=== PATIENT | female | born 1940 | race Caucasian/White ===

== ENCOUNTER 2016-07-01 10:50 | Inpatient (IN) ==
--- NOTE | 2016-07-01 11:29 | Emergency Department Note ---
Disposition Clinical Impression: Anemia Qualifiers: Anemia type: unspecified type Qualified Code(s): D64.9 - Anemia, unspecified Disposition: Admitted As Inpatient Condition: Good Referrals: NO,PCP [Non-Partnered Physician] - Forms: ED Satisfaction Letter General Adult HPI - General Chief complaint: ED Recheck/Abnormal Lab/Rx Stated complaint: Abnormal Lab result Time Seen by Provider: 07/01/16 11:12 Source: patient, EMS Limitations: no limitations Nursing Notes Reviewed: Yes Vital Signs Reviewed: Yes - History of Present Illness HPI Narrative: The patient Is a 76-year-old female with routine blood work yesterday which showed abnormal hemoglobin sent here by her primary care physician for admission. Patient denies any symptoms related to anemia she states she is in her baseline state of health she does not notice any blood or black stools per rectum. Onset (ago): day(s) (1) Improves with: nothing Worsens with: nothing Associated symptoms: Reports: denies other symptoms - Related Data Allergies Allergy/AdvReac Type Severity Reaction Status Date / Time Cefaclor [From Ceclor] AdvReac See Verified 10/07/15 12:51 Comments All systems ED: reviewed and negative except as stated. Constitutional: Denies: fever Cardiovascular: Denies: chest pain, palpitations Respiratory: Denies: dyspnea Past Medical History - Past Medical History Source: patient, old records reviewed, obtained from family, nursing notes reviewed Medical history: Reports: arthritis, diabetes Psychiatric history: Reports: no psych history - Social History Smoking Status: Never smoker Smokeless Tobacco Status: No Alcohol use: Reports: none Drug use: Reports: none Physical Exam - General Limitations: no limitations General appearance: alert, in no apparent distress - Head Head exam: atraumatic, normocephalic, normal inspection - Eye Eye exam: Present: normal appearance, PERRL, EOMI - ENT ENT exam: normal exam, normal oropharynx, mucous membranes moist - Neck Neck exam: Present: normal inspection, full ROM, trachea midline - Respiratory Respiratory exam: Present: normal lung sounds bilaterally - Cardiovascular Cardiovascular exam: Present: regular rate, normal rhythm, normal heart sounds - Abdominal Exam Abdominal exam: Present: soft, Non-Tender. Absent: tenderness, distention, guarding, rebound, rigidity - Rectal Exam Rectal exam: Present: normal inspection, normal rectal tone, heme (-) stool - Expanded Upper Extremity Exam Hand exam: Present: other (marked joint deformity bilat hands) - Back Exam Back exam: Present: normal inspection, full ROM. Absent: tenderness - Neurological Exam Neurological exam: Present: alert, oriented X3 - Psychiatric Psychiatric exam: Present: normal affect, normal mood - Skin Skin exam: Present: warm, dry, intact, normal color Course Vital Signs Temperature 98 F 07/01/16 10:53 Pulse Rate 84 07/01/16 10:53 Respiratory Rate 16 07/01/16 10:53 Blood Pressure 142/74 07/01/16 10:53 O2 Sat by Pulse Oximetry 100 07/01/16 10:53 Temperature 98 F 07/01/16 10:53 Pulse Rate 87 07/01/16 14:00 Respiratory Rate 16 07/01/16 14:00 Blood Pressure 162/74 07/01/16 14:00 O2 Sat by Pulse Oximetry 100 07/01/16 14:00 Oxygen Delivery Oxygen Delivery Room Air Medical Decision Making - MDM Narrative Medical decision making narrative: Hospitalist service and also Dr. Galindo that this could be done as an outpatient but Dr. Howard states that she wants this patient admitted she does not want her sent home and she will write in her medical notes that it is against her medical opinion and we should not send this patient home under no circumstances. The hospitalist agrees to accept and dr. galindo agrees to consult per dr. howard's request. - Medical Records Medical records reviewed: Yes I reviewed the patient's medical records. - Lab Data Lab results reviewed: Yes I reviewed the patient's lab results. Result diagrams: 07/01/16 11:55 07/01/16 11:55 Lab Results 07/01/16 07/01/16 07/01/16 Range/Units 11:55 11:55 11:55 WBC 4.2 L (4.3-11.1) K/mcL RBC 2.68 L (3.82-4.97) M/mcL Hgb 7.6 L (11.5-15.4) g/dL Hct 23.6 L (35.3-44.9) % MCV 88.1 (83.0-100.0) fL MCH 28.4 (28.0-33.3) pg MCHC 32.2 (31.6-35.5) g/dL RDW 15.1 H (11.5-14.5) % Plt Count 940 H (140-400) K/mcL MPV 8.4 L (9.4-12.4) fL Immature Gran % 4.1 H (0-4) % Seg Neutrophils % 23.3 % Lymphocytes % 42.7 % Monocytes % 26.3 % Eosinophils % 2.9 % Basophils % 0.7 % Neutrophils # 1.0 L (1.6-8.9) K/mcL Lymphocytes # 1.8 (0.6-4.6) K/mcL Monocytes # 1.1 (0.0-1.3) K/mcL Eosinophils # 0.1 (0.0-0.6) K/mcL Basophils # 0.0 (0.0-0.2) K/mcL Platelet Estimate Marked Increase H (Normal) PT 13.8 H (9.4-12.1) Seconds INR 1.3 APTT 31.4 (26.0-36.0) Seconds Sodium 134 L (136-145) mEq/L Potassium 4.5 (3.5-4.5) mEq/L Chloride 105 (98-109) mEq/L Carbon Dioxide 21 (19-29) mEq/L BUN 28 H (7-20) mg/dL Creatinine 1.85 H (0.57-1.11) mg/dL Est GFR ( Amer) 32 L (> 60) Est GFR (Non-Af Amer) 27 L (> 60) BUN/Creatinine Ratio 15 (6-26) Glucose 120 H (70-99) mg/dL Calculated Osmolality 285 (280-300) Calcium 9.3 (8.6-10.8) mg/dL Stool Occult Blood (Negative) Blood Type Antibody Screen 07/01/16 07/01/16 Range/Units 11:55 12:26 WBC (4.3-11.1) K/mcL RBC (3.82-4.97) M/mcL Hgb (11.5-15.4) g/dL Hct (35.3-44.9) % MCV (83.0-100.0) fL MCH (28.0-33.3) pg MCHC (31.6-35.5) g/dL RDW (11.5-14.5) % Plt Count (140-400) K/mcL MPV (9.4-12.4) fL Immature Gran % (0-4) % Seg Neutrophils % % Lymphocytes % % Monocytes % % Eosinophils % % Basophils % % Neutrophils # (1.6-8.9) K/mcL Lymphocytes # (0.6-4.6) K/mcL Monocytes # (0.0-1.3) K/mcL Eosinophils # (0.0-0.6) K/mcL Basophils # (0.0-0.2) K/mcL Platelet Estimate (Normal) PT (9.4-12.1) Seconds INR APTT (26.0-36.0) Seconds Sodium (136-145) mEq/L Potassium (3.5-4.5) mEq/L Chloride (98-109) mEq/L Carbon Dioxide (19-29) mEq/L BUN (7-20) mg/dL Creatinine (0.57-1.11) mg/dL Est GFR ( Amer) (> 60) Est GFR (Non-Af Amer) (> 60) BUN/Creatinine Ratio (6-26) Glucose (70-99) mg/dL Calculated Osmolality (280-300) Calcium (8.6-10.8) mg/dL Stool Occult Blood Negative (Negative) Blood Type O POSITIVE Antibody Screen POSITIVE
[2016-07-01 12:04] LABS: Basophils % 0.7 %; Eosinophils # 0.1 K/mcL (0.0-0.6); Eosinophils % 2.9 %; Hematocrit 23.6 % (35.3-44.9); Hemoglobin 7.6 g/dL (11.5-15.4); Immature Granulocytes % 4.1 % (0-4); Lymphocytes # 1.8 K/mcL (0.6-4.6); Lymphocytes % 42.7 %; Mean Corpuscular HGB Conc 32.2 g/dL (31.6-35.5); Mean Corpuscular Hemoglobin 28.4 pg (28.0-33.3); Mean Corpuscular Volume 88.1 fL (83.0-100.0); Mean Platelet Volume 8.4 fL (9.4-12.4); Monocytes # 1.1 K/mcL (0.0-1.3); Monocytes % 26.3 %; Platelet Count 940 K/mcL (140-400); Red Blood Count 2.68 M/mcL (3.82-4.97); Red Cell Distribution Width 15.1 % (11.5-14.5); Segmented Neutrophils % 23.3 %
[2016-07-01 12:09] LABS: INR 1.3; Prothrombin Time 13.8 Seconds (9.4-12.1)
[2016-07-01 12:12] LABS: Activated Partial Thrombo Time 31.4 Seconds (26.0-36.0)
[2016-07-01 12:16] LABS: Calcium 9.3 mg/dL (8.6-10.8); Potassium 4.5 mEq/L (3.5-4.5)
[2016-07-01 12:31] LABS: Platelet Estimate Marked Increase (Normal)
[2016-07-01] MEDS ORDERED: *HR* Dextrose 50 % in Water (Syg) 50 ML SYRINGE IVP PRN (17:08)
[2016-07-01] MEDS ORDERED: Dextrose Gel 15 GM PO PRN ×2 (17:08)
[2016-07-01] MEDS ORDERED: D5% in Water 1,000 ML IVC PRN (17:08)
[2016-07-01] MEDS ORDERED: *HR* Morphine 2 MG/ML SYRINGE IVP PRN (17:21)
[2016-07-01] MEDS ORDERED: Naloxone 0.4 MG/ML INJ IVP PRN (17:21)
[2016-07-01] MEDS ORDERED: Acetaminophen 325 MG TABLET PO PRN (17:21)
--- NOTE | 2016-07-01 17:56 | Internal Med History&Physical ---
<Josiane Tse - Last Filed: 07/01/16 18:31> Date of Encounter: 07/01/16 Time of Encounter: 17:46 Assessment and Plan (1) Thrombocytosis Current visit: Yes Status: Acute Acute. Platelet count 946 on 06/30, 940 on presentation to E on 07/01 Likely a primary thrombocytosis, unlikely to be reactive given no recent surgery or other potential exposure. Hematology/Oncology consulted, appreciate input and expertise. Plan for bone marrow biopsy tomorrow, patient to be NPO at midnight. (2) Anemia Current visit: Yes Status: Chronic Hemoglobin has been trending down [facility] 11/05/15. Previously 10 > 9.8 > 8.6 > 8.9 and most recently 7.1 on 06/30. Repeat hemoglobin in ER was 7.6 No obvious source of blood loss hemocult negative in ER Patient has past use of methotrexate therapy for rheumatoid arthritis, stopped in April due to concerns over ability to take once weekly dosing. Patient is currently on sulfasalazine therapy for her rheumatoid arthritis. Type and screen completed. Patient currently asyptomatic. Hematology/oncology consulted, appreciate input and expertise. Plan for bone marrow biopsy in morning, patient to be NPO at midnight. Qualifiers: Anemia type: unspecified type Qualified Code(s): D64.9 - Anemia, unspecified (3) Type 2 diabetes mellitus Current visit: Yes Status: Chronic Patient stated she took 35 units lantus daily, record review indicates patient is suppose to be taking 65 units lantus daily. Patient has CKD with GFR of 26. Will start levemir 8 units, renal dosing QHS with first dose tomorrow night. Will place patient on novolog 4 units with meals three times daily per renal dosing Will start novolog low dose sliding scale qith meals and at night Given confusion over insulin dosing between patient and availabel record, suspect will have to increase insulin dosing based on glucose. Qualifiers: Diabetes mellitus complication status: with other specified complication Diabetes mellitus shelter insulin use: with accounting manager use Qualified Code(s) : E11.69 - Type 2 diabetes mellitus with other specified complication; Z79.4 - [facility] (current) use of insulin (4) Rheumatoid arthritis Current visit: Yes Status: Chronic Follows with Dr. Conde outpatient. Previously on mehotrexate therapy, discontinued in April 2016. Will continue sulfasalazine 500 mg BID. Qualifiers: Qualified Code(s): M06.9 - Rheumatoid arthritis, unspecified (5) Mouth sore Current visit: Yes Status: Acute Recently seen at PCP office and diagnosed with cheek abscess. Will continue amoxicillin BID as started by PCP. Internal Medicine - H&P: HPI Chief complaint: sent by primary care docor for low blood counts Admitted From: Home Plans for Post Hospital Care: Home History of present illness: Ms. Biggs is a 76 year old female with past medical history of type 2 diabetes on shelter insulin who presented to the emergency room for evaluation after being informed of a low blood count by her primary care physician. Patient is a somewhat poor historian and had difficulty remembering why she came to the ER, so additional information was gained through chart review. Per chart review, patient has been seeing Dr. Conde for her rheumatoid arthritis. She was on methotrexate therapy until April of this year. Per office note, it was stopped due to concerns of remembering to take the medication since it was once weekly. She was then switched to sulfasalazine therapy which she takes twice daily. Review of labs indicates a hemoglobin of 10.0 in 11/05/15 which has consistently dropped to 9.8 on 02/21/16, 8.6 on , 8.9 on 05/01/16 and 7.1 on 06/30/16. Platelets have been normal until blood draw of 06/30/16 when they were found to be elevated to 946. She was recently evaluated at her primary care provider's office for concerns of a mouth lesion, has a small sore on her inner right cheek and is currently on treatment for a cheek abscess with amoxicillin BID. Patient herself states she is feeling well. She denies any shortness of breath , dizziness, palpitations or fatigue. She denies any blood in stool or any other source of bleeding. She states she has been feeling well at home. She is inquiring if the bone marrow biopsy will be painful and is inquiring if she will have pain medication available. She has no other acute concerns or complaints at this time. Past Med Surg Social Fam HX - Past Medical History Source: patient Medical history: arthritis (rheumatoid), diabetes (on shelter insulin ) Psychiatric history: no psych history - Past Surgical History Surgical History: hip replacement, other (prothestic left eye) - Social History Smoking Status: Never smoker Smokeless Tobacco Status: No Alcohol use: none Drug use: none Current living situation: Home, With Family () Activity Level: Uses cane/walker - Family History Mother Hx Family Cardiac Disorders: Yes Hx Family Endocrine Disorder: Yes (diabetes) Internal Medicine - H&P: Meds Amoxicillin [Amoxil] 500 mg PO BID 07/01/16 [History] Cholecalciferol (D-3) [Vitamin D] 5,000 unit PO DAILY 07/01/16 [History] Dicyclomine [Bentyl] 10 mg PO QID 07/01/16 [History] Escitalopram [Lexapro] 10 mg PO DAILY 07/01/16 [History] Insulin LISPRO [Humalog Kwikpen U-100] 25 unit SQ BID 07/01/16 [History] Sulfasalazine [Azulfidine] 500 mg PO BID 07/01/16 [History] Allergies Cefaclor [From Ceclor] Adverse Reaction (Verified 10/07/15 12:51) See Comments All Systems PM: A 10-system review of systems was performed and is negative for pertinent findings except as documented above in the HPI. - Constitutional Constitutional: no fatigue, no fever(s), no lethargy - EENT Eyes: discharge (left eye, chronic), no blurry vision, no change in vision Additional comments: left prosthetic eye Ears: no decreased hearing Nose, mouth and throat: mouth lesions (right cheek ), no dysphagia, no epistaxis , no neck pain - Cardiovascular Cardiovascular ROS IM: no chest pain, no dyspnea, no dyspnea on exertion, no irregular heart rhythm, no lightheadedness, no orthopnea, no palpitations - Respiratory Respiratory: no cough, no hemoptysis, no dyspnea on exertion, no wheezing, no chest congestion - Gastrointestinal Gastrointestinal: no abdominal pain, no change in bowel habits, no coffee ground emesis, no hematemesis, no hematochezia, no melena, no nausea, no vomiting - Genitourinary Genitourinary: no dysuria, no hematuria, no urinary frequency, no urinary urgency - Musculoskeletal Musculoskeletal ROS IM: arthralgias (hands and body secondary to rheumatoid), deformity (bilateral hands), other (history of hip replacement, walks with cane) - Integumentary Integumentary IM: no erythema, no rash - Neurological Neurological ROS: no dizziness, no focal weakness, no weakness - Endocrine Endocrine IM: no cold intolerance, no fatigue, no heat intolerance - Hematologic/Lymphatic Hematologic/Lymphatic: other (nown history of anemia), no easy bleeding, no easy bruising - Allergic/Immunologic Allergic/Immunologic: no seasonal rhinorrhea, no uticaria - Constitutional Vitals: Temp Pulse Resp BP Pulse Ox 98.0 F 88 15 149/72 99 07/01/16 16:17 07/01/16 16:17 07/01/16 16:17 07/01/16 16:17 07/01/16 16:19 General appearance: Present: cooperative, A&O X 3, pleasant, no acute distress, answers questions appropriately - Head Head exam: Present: atraumatic, normocephalic - Eye Eye exam: Present: normal appearance (right eye apears normal). Absent: conjunctival injection Additional comments: green discharge seen from left prosthetic eye - ENT ENT exam: Present: mucous membranes moist, normal external ear exam - Neck Neck exam general surgery: Present: supple, trachea midline. Absent: lymphadenopathy - Respiratory Respiratory exam: Present: CTAB. Absent: rales, rhonchi, stridor, wheezes - Cardiovascular Cardiovascular exam: Present: RRR, +S1, +S2. Absent: clicks, diastolic murmur, gallop, rubs, systolic murmur - GI/Abdominal GI/Abdominal exam: Present: normal bowel sounds, soft. Absent: distended, guarding, rebound, tenderness - Extremities Exam Extremities exam: Present: normal capillary refill. Absent: pedal edema - Expanded Upper Extremities Exam Forearm wrist exam: Present: swelling (approx 2 cm x 2 cm circumfrential soft swelling noted on back of right hand, mobile, non tender to palpation ) Hand wrist exam: Present: deformity (boutineere defomities bilateral DIPS and swan neck deformities bilateral PIPs ) - Expanded Lower Extremities Exam Lower Leg exam: Present: abrasion (left lower tibia, superficial) - Neurological Exam Neurological exam: Present: alert. Absent: facial droop, speech deficit - Psychiatric Psychiatric exam: Present: normal affect, normal mood - Skin Skin exam: Present: dry, intact, warm. Absent: erythema, rash Internal Med - H&P Results - Labs CBC & Chem 7: 07/01/16 11:55 07/01/16 11:55 <MohsenAntonio Nate - Last Filed: 07/01/16 19:02> Assessment and Plan (1) Thrombocytosis Current visit: Yes Status: Acute Abrupt increase in platelets recently. ? etiology. Repeat labs tomorrow. Hematology consult - most likely needs bone marrow. (2) Anemia Current visit: Yes Status: Chronic Qualifiers: Anemia type: unspecified type Qualified Code(s): D64.9 - Anemia, unspecified (3) Type 2 diabetes mellitus Current visit: Yes Status: Chronic Qualifiers: Diabetes mellitus complication status: with other specified complication Diabetes mellitus accounting manager insulin use: with shelter use Qualified Code(s) : E11.69 - Type 2 diabetes mellitus with other specified complication; Z79.4 - [facility] (current) use of insulin (4) Rheumatoid arthritis Current visit: Yes Status: Chronic Qualifiers: Rheumatoid arthritis location: multiple sites Rheumatoid factor presence: unspecified presence Qualified Code(s): M06.9 - Rheumatoid arthritis, unspecified (5) Mouth sore Current visit: Yes Status: Acute Internal Medicine - H&P: HPI History of present illness: Ms. Biggs is a 76 year old female All Systems PM: A 10-system review of systems was performed and is negative for pertinent findings except as documented above in the HPI. - Constitutional Vitals: Temp Pulse Resp BP Pulse Ox 98.0 F 88 15 149/72 99 07/01/16 16:17 07/01/16 16:17 07/01/16 16:17 07/01/16 16:17 07/01/16 16:19 Internal Med - H&P Results - Labs CBC & Chem 7: 07/01/16 11:55 07/01/16 11:55 - Attending Attestation I examined this patient and my medical decision-making was reviewed with the Resident Physician on 07/01/16. I agree with the documented findings, disposition and treatment plan as described except to the extent set forth below. Ms. Biggs is a 76 y/o female with a history of RA sent to ED by PCP due to anemia. Pt denies any symptoms of dysnpea, chest pain, abd pain, bloody stools or other signs of bleeding. Denies any recent surgery or injury. She herself does not understand why she is here. Her only issue is she is hungry. Exam Alert. Comfortable. Pale Mucus membranes dry Heart reg Lungs clear Abd soft and nontender No edema Changes noted from RA Plt > 900K Hgb 7.6 I/P 1. Thrombocytosis 2. Anemia 3. RA Further diagnoses and plan as above.
[2016-07-01] MEDS: Insulin LISPRO 300 UNITS/3 ML VIAL SQ SCH ×2 (18:24→18:27)
[2016-07-01] MEDS: Amoxicillin 500 MG CAPSULE PO SCH (20:45)
[2016-07-01] MEDS: sulfaSALAzine 500 MG TABLET PO SCH (20:45)
[2016-07-01] MEDS ORDERED: Ondansetron 4 MG/2 ML VIAL IVP ONE (20:49)
[2016-07-02 05:07] LABS: Albumin 2.4 g/dL (3.5-5.0); Albumin/Globulin Ratio 0.5 (1.1-2.2); Bilirubin,Total 0.2 mg/dL (0.2-1.2); Calcium 8.8 mg/dL (8.6-10.8); Globulin 5.2 g/dL (2.4-3.5); Magnesium 1.4 mg/dL (1.6-2.6); Phosphorous 3.7 mg/dL (2.3-4.7); Potassium 4.4 mEq/L (3.5-4.5); Total Protein 7.6 g/dL (6.0-8.3)
[2016-07-02] MEDS: Insulin LISPRO 300 UNITS/3 ML VIAL SQ SCH ×7 (07:39→18:13)
[2016-07-02 07:49] LABS: Basophils % 0.8 %; Eosinophils # 0.2 K/mcL (0.0-0.6); Eosinophils % 2.8 %; Hemoglobin 6.8 g/dL (11.5-15.4); Immature Granulocytes % 3.8 % (0-4); Lymphocytes # 2.4 K/mcL (0.6-4.6); Lymphocytes % 45.4 %; Mean Corpuscular HGB Conc 32.4 g/dL (31.6-35.5); Mean Corpuscular Hemoglobin 27.8 pg (28.0-33.3); Mean Corpuscular Volume 85.7 fL (83.0-100.0); Mean Platelet Volume 9.4 fL (9.4-12.4); Monocytes # 1.4 K/mcL (0.0-1.3); Monocytes % 26.4 %; Neutrophils # 1.1 K/mcL (1.6-8.9); Platelet Count 874 K/mcL (140-400); Red Blood Count 2.45 M/mcL (3.82-4.97); Red Cell Distribution Width 15.1 % (11.5-14.5); Segmented Neutrophils % 20.8 %
--- NOTE | 2016-07-02 08:37 | Oncology Inp Consult Note ---
Date of Encounter: 07/02/16 Time of Encounter: 07:00 Assessment and Plan (1) Thrombocytosis Status: Acute Assessment and plan: Thrombocytosis likely reactive, extremity markers elevated, normocytic anemia at the same time consists concerning for iron deficiency, occult GI bleeding. Transfuse PRBC for hemoglobin of 6.8 g. Possible reactive thrombocytosis secondary to rheumatoid she has been taken off MTX since . JAK2 mutation to rule out a primary hematologic process such as ET. Renal insufficiency-new onset, hxDM. Obtain SPEP light chains with other CBCD abnormalities. Patient is in the hospital to complete workup of this process, proceed with bone marrow to r/o concomitant primary hematological process. Plan discussed with house staff in detail and patient. - Data of Consult Requesting Physician: Elisabet Zeng Primary Care Provider: Varun Howard DO - Consult Narrative Reason for consult: thrombocytosis anemia History of present illness: Ms. Biggs is a 76 year old female with medical history significant for rheumatoid arthritis, follows up with Dr. Conde also methotrexate therapy since April 2016 on sulfasalazine, history of diabetes mellitus referred for further evaluation of abnormal labs by her PCP. Patient was noted to have a hemoglobin of 9-10 g baseline had lab works drawn in April 2016 when it was level in the 8 g range again in June with subsequent drop to 6.827 g. Platelets were elevated during the this time. From baseline of 302 900,000. The patient denies any black stools she has a prosthesis in the left eye but her vision is good in the right eye. She had a stool guaiac which was negative per ER. She has rheumatoid deformities in the extremity and nodules but denies any pain issues. She denies any abdominal pain denies any cold symptoms denies any shortness of breath with exertion or fatigue. Nausea also her medications for rheumatoid. She is not sure of the dosage of insulin she is on. 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 ) Psychiatric history: no psych history - Past Surgical History Surgical History: hip replacement, other (prothestic left eye) - Social History Smoking Status: Never smoker Smokeless Tobacco Status: No Alcohol use: none Drug use: none - Family History Mother Hx Family Cardiac Disorders: Yes Hx Family Endocrine Disorder: Yes (diabetes) Medications and Allergies Amoxicillin [Amoxil] 500 mg PO BID 07/01/16 [History] Cholecalciferol (D-3) [Vitamin D] 5,000 unit PO DAILY 07/01/16 [History] Dicyclomine [Bentyl] 10 mg PO QID 07/01/16 [History] Escitalopram [Lexapro] 10 mg PO DAILY 07/01/16 [History] Insulin LISPRO [Humalog Kwikpen U-100] 25 unit SQ BID 07/01/16 [History] Sulfasalazine [Azulfidine] 500 mg PO BID 07/01/16 [History] Allergies Cefaclor [From Ceclor] Adverse Reaction (Verified 10/07/15 12:51) See Comments Review of systems: as in HPI Oncology - Exam - Constitutional Vitals: Temp Pulse Resp BP Pulse Ox 97.9 F 82 15 166/72 95 07/02/16 07:46 07/02/16 07:46 07/02/16 07:46 07/02/16 07:46 07/02/16 07:46 General appearance: thin - Head Head exam: Present: atraumatic, normal inspection - Eye Eye exam: Present: sclera anicteric Additional comments: left eye prosthesis - ENT ENT exam: Present: mucous membranes moist - Neck Additional comments: no adenopathy - Respiratory Respiratory exam: Present: CTAB - Cardiovascular Cardiovascular exam: Present: +S1, +S2 - GI/Abdominal GI/Abdominal exam: Present: normal bowel sounds, soft - Extremities Exam Additional comments: rheumatoid deformity, nodule, swelling - Neurological Exam Neurological exam: Present: alert, CN II-XII intact, oriented X3 - Psychiatric Psychiatric exam: Present: normal affect Oncology - Results - Labs Labs: Short CBC 07/02/16 Range/Units 07:05 WBC 5.3 (4.3-11.1) K/mcL Hgb 6.8 L (11.5-15.4) g/dL Hct 21.0 L (35.3-44.9) % Plt Count 874 H (140-400) K/mcL Neutrophils # 1.1 L (1.6-8.9) K/mcL BMP 07/02/16 04:26 Sodium 135 L Potassium 4.4 Chloride 105 Carbon Dioxide 16 L BUN 31 H Creatinine 2.44 H Glucose 190 H Calcium 8.8 Liver Function 03/26/17 Range/Units 04:26 Total Bilirubin 0.2 (0.2-1.2) mg/dL AST 18 (5-34) Units/L ALT 14 (0-55) Units/L Alkaline Phosphatase 111 (38-126) Units/L Albumin 2.4 L (3.5-5.0) g/dL Consult Discharge Plan - Plan Referrals: Varun Howard DO [Primary Care Provider] -
--- NOTE | 2016-07-02 10:00 | Nephrology Consult Note ---
Date of Encounter: 07/02/16 Time of Encounter: 09:30 Assessment and Plan (1) BEKAH (acute kidney injury) Current Visit: Yes Status: Acute BEKAH,may be on undiagnosed CKD in setting of DM and chronic NSAID use. Renal fct based on prior labs up until October 2015 was normal. Starting in February 2016 creat 1.2-2.0. Noted mild proteinuria on prior urine. Will start renal workup and continue to monitor. History of Present Illness - Reason for Consult Acute Kidney Injury - History of Present Illness Ms. Biggs is a 76 year old female who was sent to ER by PCP for low hemoglobin of 7.6. PMH- RA on Methotrexate up until Apr 2016, currently on Sulfasalazine, DM II-insulin dependent. Creat was noted to be elevated 1.85 and today 2.44. At consult Ms. 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 She states diabetes for at least 20 years mostly under good control. She denies diabetic retinopathy, but does admit laser surgery on right eye but does not know why. 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 She denies hypertension. She admits chronic NSAID use in setting of arthritis. She denies proteinuria, hematuria, renal stones or UTI's. She denies swelling or difficulty emptying bladder. She denies recent illness, vomiting or diarrhea. Does admit somewhat decreased appetite recently but has been drinking normal fluids. She denies shortness of breath, chest pain, abdominal pain, bloody stools or other signs of bleeding. 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 insulin ) Psychiatric history: no psych history - Past Surgical History Surgical History: hip replacement, other (prothestic left eye) - Social History Smoking Status: Never smoker Smokeless Tobacco Status: No Alcohol use: none Drug use: none - Family History Mother Hx Family Cardiac Disorders: Yes Hx Family Endocrine Disorder: Yes (diabetes) Medications and Allergies Amoxicillin [Amoxil] 500 mg PO BID 07/01/16 [History] Cholecalciferol (D-3) [Vitamin D] 5,000 unit PO DAILY 07/01/16 [History] Dicyclomine [Bentyl] 10 mg PO QID 07/01/16 [History] Escitalopram [Lexapro] 10 mg PO DAILY 07/01/16 [History] Insulin LISPRO [Humalog Kwikpen U-100] 25 unit SQ BID 07/01/16 [History] Sulfasalazine [Azulfidine] 500 mg PO BID 07/01/16 [History] Allergies Cefaclor [From Ceclor] Adverse Reaction (Verified 10/07/15 12:51) See Comments Review of Systems All Systems: reviewed and no additional remarkable complaints except as stated Exam - Vital Signs Vital signs: Initial Vital Signs Temp Pulse Resp BP Pulse Ox 98 F 84 16 142/74 100 07/01/16 10:53 07/01/16 10:53 07/01/16 10:53 07/01/16 10:53 07/01/16 10:53 Vital Signs - Last 8 Hours Temp Pulse Resp BP Pulse Ox 07/02/16 07:46 97.9 F 82 15 166/72 95 07/02/16 03:52 98.0 F 90 16 120/53 97 Intake and Output 07/01/16 07/02/16 07/02/16 23:59 07:59 15:59 Other: Meal Dinner NPO Percent of Meal Consumed 95% # Voids 1 2 Weight 51.398 kg Blood Glucose* 155 190 Patient Weight 07/02/16 23:59 Weight 51.398 kg - General Appearance General appearance: appears started age, frail EENT: mucous membranes moist Neck: no JVD, no carotid bruit Respiratory: clear Cardiology: no edema, regular rate, regular rhythm Additional Comments: 2/6 systolic murmur Gastrointestinal: normoactive bowel sounds, no tenderness, no guarding Integumentary: warm and dry Psychiatric: mood/affect appropriate, cooperative Results - Lab Results 07/02/16 07:05 07/02/16 04:26 Most recent lab results Calcium 8.8 mg/dL (8.6-10.8) 07/02/16 04:26 Phosphorus 3.7 mg/dL (2.3-4.7) 07/02/16 04:26 Magnesium 1.4 mg/dL (1.6-2.6) L 07/02/16 04:26 Consult Discharge Plan - Plan Referrals: Varun Howard DO [Primary Care Provider] -
[2016-07-02] MEDS: Cholecalciferol (D-3) 1,000 UNIT TABLET PO SCH (10:26)
[2016-07-02] MEDS: sulfaSALAzine 500 MG TABLET PO SCH ×2 (10:26→20:30)
[2016-07-02] MEDS: Amoxicillin 500 MG CAPSULE PO SCH ×2 (10:26→20:30)
[2016-07-02 10:28] LABS: Uric Acid 6.2 mg/dL (2.6-6.0)
[2016-07-02] MEDS ORDERED: Ondansetron 4 MG/2 ML VIAL IVP PRN (12:08)
--- NOTE | 2016-07-02 18:43 | Internal Med Progress Note ---
Date of Encounter: 07/02/16 Time of Encounter: 15:00 - Assessment and plan (1) Anemia Current Visit: Yes Status: Chronic Assessment and plan: Acute on chronic. It appears as if her hemoglobin was stable from 2013 until October 2015 between 9 and 10 and from that point, has trended down similar to her renal functioning. Hemoglobin currently 6.8, she is symptomatic, we will transfuse 3 units of packed red blood cells. We will also initiate anemia workup. Thrombocytosis also noted. Patient was on methotrexate for her RA until April of this year. Hematology/oncology now on board. Plan is for a bone marrow biopsy tomorrow. Qualifiers: Anemia type: unspecified type Qualified Code(s): D64.9 - Anemia, unspecified (2) Acute renal failure Current Visit: Yes Status: Acute Assessment and plan: Unclear causation. Patient had normal renal functioning in October 2015 and she has rapidly progressed into renal failure currently stage IV. She has not seen a statistical secretary according to her chart, nephrology on board. Dr. Torres brought on board. Diabetes relatively well controlled with an A1c of 6.5% on . (3) Thrombocytosis Current Visit: Yes Status: Acute Assessment and plan: New, hematology/oncology on board. Bone marrow biopsy tomorrow. Inflammatory markers elevated as well suggestive of possible reactive etiology secondary to her RA. (4) Type 2 diabetes mellitus Current Visit: Yes Status: Chronic Assessment and plan: Relatively well controlled with an A1c of 6.5% on 05/08/16. Continue sliding scale while admitted. Qualifiers: Diabetes mellitus complication status: with other specified complication Diabetes mellitus digital director insulin use: with digital director use Qualified Code(s) : E11.69 - Type 2 diabetes mellitus with other specified complication; Z79.4 - penitentiary (current) use of insulin (5) Rheumatoid arthritis Current Visit: Yes Status: Chronic Assessment and plan: Was on methotrexate until April of this year at which time she was switched over to sulfasalazine. According to her chart, she was switched away from methotrexate due to concerns over her ability to take her doses once per week. Qualifiers: Rheumatoid arthritis location: multiple sites Rheumatoid factor presence: unspecified presence Qualified Code(s): M06.9 - Rheumatoid arthritis, unspecified (6) Mouth sore Current Visit: Yes Status: Acute Assessment and plan: Seen by her primary care provider and diagnosed with a cheek abscess and started on amoxicillin-continued (7) Malnourished Current Visit: Yes Status: Acute Assessment and plan: Emaciated will bring nutrition on board. Her weights when she saw her primary care provider and her cold work operator in April were 120 pounds, she is currently 113. Unclear whether or not she was actually weighed at these appointments. - Subjective Interval history: Patient seen and examined. On examination, patient alert and oriented 3 and currently states she is hungry. She denies further concerns at this time. - Constitutional Vitals: Temp Pulse Resp BP Pulse Ox 98.0 F 99 15 114/61 100 07/02/16 15:06 07/02/16 15:06 07/02/16 15:06 07/02/16 15:06 07/02/16 15:06 General appearance: Present: cooperative, A&O X 3, pleasant, no acute distress, answers questions appropriately - Head Head exam: Present: atraumatic, normocephalic - Eye Eye exam: Present: PERRL, conjuntiva pink, sclera anicteric Pupils: Present: PERRL - Neck Neck exam general surgery: Present: supple, trachea midline. Absent: lymphadenopathy - Respiratory Respiratory exam: Present: decreased breath sounds. Absent: accessory muscle use, rales, respiratory distress, rhonchi, wheezes - Cardiovascular Cardiovascular exam: Present: RRR, +S1, +S2. Absent: diastolic murmur, gallop, rubs, systolic murmur - GI/Abdominal GI/Abdominal exam: Present: normal bowel sounds, soft, no peritoneal signs. Absent: distended, tenderness - Extremities Exam Extremities exam: Present: warm, radial pulses palpable and symetrical. Absent : calf tenderness, cyanotic, pedal edema - Neurological Exam Neurological exam: Present: alert, CN II-XII intact, oriented X3, no focal deficits, strengths equal and symetr throughout. Absent: pronater drift, facial droop, speech deficit - Skin Skin exam: Present: dry, intact, pallor, warm Internal Medicine: Result - Labs CBC & Chem 7: 07/02/16 07:05 07/02/16 04:26 Labs: Short CBC 07/02/16 Range/Units 07:05 WBC 5.3 (4.3-11.1) K/mcL Hgb 6.8 L (11.5-15.4) g/dL Hct 21.0 L (35.3-44.9) % Plt Count 874 H (140-400) K/mcL Neutrophils # 1.1 L (1.6-8.9) K/mcL BMP 07/02/16 04:26 Sodium 135 L Potassium 4.4 Chloride 105 Carbon Dioxide 16 L BUN 31 H Creatinine 2.44 H Glucose 190 H Calcium 8.8 Liver Function 07/02/16 Range/Units 04:26 Total Bilirubin 0.2 (0.2-1.2) mg/dL AST 18 (5-34) Units/L ALT 14 (0-55) Units/L Alkaline Phosphatase 111 (38-126) Units/L Albumin 2.4 L (3.5-5.0) g/dL - ABG Interpretation ABG results: PT/INR, D-dimer PT 13.8 Seconds (9.4-12.1) H 07/01/16 11:55 Consult Discharge Plan - Plan Referrals: Varun Howard DO [Primary Care Provider] -
[2016-07-02] MEDS ORDERED: *HR* Promethazine 25 MG/ML VIAL IVP PRN (18:46)
[2016-07-02] MEDS ORDERED: *HR* HYDROcodone/Acet 5/325 mg TABLET PO PRN (19:00)
[2016-07-02] MEDS ORDERED: Insulin DETEMIR 100 UNIT/ML X5UNITS SQ SCH (21:00)
[2016-07-02] MEDS ORDERED: 0.9 % Sodium Chloride 250 ML ONE (22:47)
[2016-07-03] MEDS ORDERED: 0.9 % Sodium Chloride 250 ML ONE ×2 (02:03→05:25)
--- NOTE | 2016-07-03 06:08 | Electrocardiograph Report ---
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
[2016-07-03] MEDS: Amoxicillin 500 MG CAPSULE PO SCH (08:06)
[2016-07-03] MEDS: sulfaSALAzine 500 MG TABLET PO SCH (08:06)
[2016-07-03] MEDS: Insulin LISPRO 300 UNITS/3 ML VIAL SQ SCH ×4 (08:06→12:14)
[2016-07-03] MEDS: Cholecalciferol (D-3) 1,000 UNIT TABLET PO SCH (08:06)
[2016-07-03] MEDS ORDERED: *HR* FentaNYL (PF) 100 MCG/2 ML VIAL IV PRN (08:41)
[2016-07-03] MEDS ORDERED: *HR* Midazolam HCl 2 MG/2 ML VIAL IV PRN (08:41)
--- NOTE | 2016-07-03 08:41 | Pre-Sedation Evaluation ---
Pre-sedation evaluation - Pre-sedation checklist Recent Vitals: Last Vital Signs Temp 98.0 F 07/03/16 08:25 Pulse 80 07/03/16 08:25 Resp 15 07/03/16 08:25 BP 173/79 07/03/16 08:25 Pulse Ox 97 07/03/16 06:54 Airway Assessment: Patient can open mouth completely, TMJ function normal, Micrognathia (under-bite, receding chin) absent, Neck with adequate range of motion Dentition: No loose teeth or bridges Possible difficult airway: No ASA Classification *see protocol: CLASS II-Mild systemic disease Plan of Care: Pt appropriate candidate for procedure/moderate/conscious sedation , Risks/benefits of procedure/sedation discussed w/ patient/family
[2016-07-03] MEDS ORDERED: 0.9 % Sodium Chloride 500 ML ONE (10:45)
[2016-07-03] MEDS ORDERED: *HR* Metoprolol 5 MG/5 ML VIAL IVP PRN (12:10)
--- NOTE | 2016-07-03 12:21 | Nephrology Progress Note ---
Date of Encounter: 07/03/16 Time of Encounter: 12:00 - Assessment and Plan (1) BEKAH (acute kidney injury) Current Visit: Yes Status: Acute BEKAH,may be on undiagnosed CKD in setting of DM and chronic NSAID use. Renal US atrophic right kidney. No hydronephrosis, increased corticol echogenicity consistent with medical renal disease. Renal fct based on prior labs up until October 2015 was normal. Starting in February 2016 creat 1.2-2.0. Noted mild proteinuria on prior urine, 24 hr urine protein in progress. Todays labs pending. If remains NPO would start 0.9NS at 75cc/hr. Renal workup in progress , continue to monitor. Avoid nephrotoxins. Subjective Interval history: Resting quietly in bed. States she just came back from bone marrow biopsy. Objective - Vital Signs Vital signs: Vital Signs Temp Pulse Resp BP Pulse Ox 07/03/16 11:57 97.7 F 81 14 186/80 98 07/03/16 11:19 85 18 179/79 100 07/03/16 11:00 82 17 180/84 07/03/16 08:25 98.0 F 80 15 173/79 07/03/16 06:54 97.8 F 79 14 148/70 97 07/03/16 05:24 97.9 F 77 16 169/76 97 07/03/16 02:23 97.9 F 79 16 132/82 97 07/03/16 02:09 98.2 F 83 16 145/68 98 07/02/16 23:38 98.7 F 83 12 160/68 93 L 07/02/16 23:23 97.8 F 84 16 139/71 07/02/16 23:08 97.6 F 85 16 148/81 98 07/02/16 23:00 98.0 F 16 148/76 97 07/02/16 18:57 98.1 F 92 15 126/73 98 Intake and Output 07/02/16 07/03/16 07/03/16 23:59 07:59 15:59 Intake Total 0 / 240 597 / 597 300 / 300 Balance 0 / 40 597 / 597 300 / 300 Intake: Blood Product 0 / 0 597 / 597 300 / 300 Rbcs Leuko Poor As-1 0 / 0 300 / 300 Unit [id number] Rbcs Leuko Poor As-1 297 / 297 Unit [id number] Rbcs Leuko Poor As-1 0 / 0 300 / 300 Unit [id number] Other: Meal NPO Blood Glucose* 150 64 105 - General Appearance General appearance: Present: well-developed, well-nourished, appears started age EENT: Present: mucous membranes moist Neck: Present: no JVD Respiratory: Present: clear Cardiology: Present: no edema, regular rate, regular rhythm Gastrointestinal: Present: normoactive bowel sounds, no tenderness Integumentary: Present: warm and dry Neurologic: Present: alert and oriented x3 Psychiatric: Present: mood/affect appropriate, cooperative - Lab 07/02/16 07:05 07/02/16 04:26 Most recent lab results Calcium 8.8 mg/dL (8.6-10.8) 07/02/16 04:26 Phosphorus 3.7 mg/dL (2.3-4.7) 07/02/16 04:26 Magnesium 1.4 mg/dL (1.6-2.6) L 07/02/16 04:26 Consult Discharge Plan - Plan Referrals: Varun Howard DO [Primary Care Provider] - 07/07/16 10:00 am
[2016-07-03] MEDS ORDERED: amLODIPine 5 MG TABLET PO SCH (12:30)
[2016-07-03 12:31] LABS: Basophils # 0.1 K/mcL (0.0-0.2); Eosinophils # 0.1 K/mcL (0.0-0.6); Hematocrit 39.4 % (35.3-44.9); Mean Corpuscular HGB Conc 32.7 g/dL (31.6-35.5); Mean Corpuscular Hemoglobin 27.9 pg (28.0-33.3); Mean Corpuscular Volume 85.1 fL (83.0-100.0); Mean Platelet Volume 8.1 fL (9.4-12.4); Platelet Count 826 K/mcL (140-400); Red Blood Count 4.63 M/mcL (3.82-4.97); Red Cell Distribution Width 15.2 % (11.5-14.5)
[2016-07-03 12:35] LABS: Hemoglobin 12.9 g/dL (11.5-15.4)
[2016-07-03 12:39] LABS: INR 1.3; Prothrombin Time 14.1 Seconds (9.4-12.1)
[2016-07-03 12:47] LABS: Albumin 2.5 g/dL (3.5-5.0); Albumin/Globulin Ratio 0.5 (1.1-2.2); Bilirubin,Total 0.8 mg/dL (0.2-1.2); Calcium 8.9 mg/dL (8.6-10.8); Globulin 5.2 g/dL (2.4-3.5); Potassium 4.5 mEq/L (3.5-4.5); Total Protein 7.7 g/dL (6.0-8.3); Uric Acid 5.5 mg/dL (2.6-6.0)
[2016-07-03 13:00] LABS: Lymphocytes # 2.9 K/mcL (0.6-4.6); Monocytes # 0.8 K/mcL (0.0-1.3); Neutrophils # 1.7 K/mcL (1.6-8.9); Platelet Estimate Increased (Normal)
[2016-07-03 13:08] LABS: Thyroid Stimulating Hormone 4.147 mcIU/mL (0.350-4.840)
[2016-07-03 14:22] LABS: Folate 8.8 ng/mL (7.0-31.4)
--- NOTE | 2016-07-03 14:23 | Internal Med Progress Note ---
Date of Encounter: 07/03/16 Time of Encounter: 12:30 - Assessment and plan (1) Anemia Current Visit: Yes Status: Chronic Assessment and plan: Status post transfusion of 3 units of packed red blood cells. Hemoglobin 6.8 up to 12.9. We will continue to trend. Oncology/hematology are on board. Patient had a bone marrow biopsy earlier today. 07/02/16 Acute on chronic. It appears as if her hemoglobin was stable from 2013 until October 2015 between 9 and 10 and from that point, has trended down similar to her renal functioning. Hemoglobin currently 6.8, she is symptomatic, we will transfuse 3 units of packed red blood cells. We will also initiate anemia workup. Thrombocytosis also noted. Patient was on methotrexate for her RA until April of this year. Hematology/oncology now on board. Plan is for a bone marrow biopsy tomorrow. Qualifiers: Anemia type: unspecified type Qualified Code(s): D64.9 - Anemia, unspecified (2) Acute renal failure Current Visit: Yes Status: Acute Assessment and plan: Unclear causation. Patient had normal renal functioning in October 2015 and she has rapidly progressed into renal failure currently stage IV. She has not seen a pancake professional according to her chart, nephrology on board. Dr. Torres brought on board. Diabetes relatively well controlled with an A1c of 6.5% on . Retroperitoneal ultrasound revealing severe right renal atrophy with increased cortical echogenicity bilaterally. Appreciate nephrology recommendations. Renal functioning improved slightly overnight. ITS Impressions Retroperitoneum Ultrasound 07/03/16 09:00 IMPRESSION: 1. No hydronephrosis. 2. Severe right renal atrophy. Increased cortical echogenicity of both kidneys is compatible with chronic medical renal disease. D/ / Kashif Garcia MD / Kashif Garcia MD Interpreting Provider: Kashif Garcia MD (3) Thrombocytosis Current Visit: Yes Status: Acute Assessment and plan: New, hematology/oncology on board. Bone marrow biopsy today. Continues to improve daily. Inflammatory markers elevated as well suggestive of possible reactive etiology secondary to her RA. (4) Type 2 diabetes mellitus Current Visit: Yes Status: Chronic Assessment and plan: Relatively well controlled with an A1c of 6.5% on 05/08/16. Continue sliding scale while admitted. Qualifiers: Diabetes mellitus complication status: with other specified complication Diabetes mellitus exterminator helper termite insulin use: with senior living use Qualified Code(s) : E11.69 - Type 2 diabetes mellitus with other specified complication; Z79.4 - terminal operator (current) use of insulin (5) Rheumatoid arthritis Current Visit: Yes Status: Chronic Assessment and plan: Was on methotrexate until April of this year at which time she was switched over to sulfasalazine. According to her chart, she was switched away from methotrexate due to concerns over her ability to take her doses once per week. Qualifiers: Rheumatoid arthritis location: multiple sites Rheumatoid factor presence: unspecified presence Qualified Code(s): M06.9 - Rheumatoid arthritis, unspecified (6) Mouth sore Current Visit: Yes Status: Acute Assessment and plan: Seen by her primary care provider and diagnosed with a cheek abscess and started on amoxicillin-continued (7) Malnourished Current Visit: Yes Status: Acute Assessment and plan: Emaciated; will bring nutrition on board. Her weights when she saw her primary care provider and her supervisor plastering in April were 120 pounds, she is currently 113. Unclear whether or not she was actually weighed at these appointments. (8) Hypertension Current Visit: Yes Status: Acute Assessment and plan: She does not appear to have a history of hypertension. She is not on any antihypertensive medications at home. Amlodipine initiated per nephrology. - Subjective Interval history: Patient seen and examined upon her return from her procedure. She was sitting upright on the side of her bed eating lunch. She denies pain "other than my regular pain." She declines the need for any pain or nausea medication. She denies concerns at this time. - Constitutional Vitals: Temp Pulse Resp BP Pulse Ox 97.7 F 81 14 186/80 98 07/03/16 11:57 07/03/16 11:57 07/03/16 11:57 07/03/16 11:57 07/03/16 11:57 General appearance: Present: cachectic, cooperative, A&O X 3, pleasant, no acute distress, answers questions appropriately - Head Head exam: Present: atraumatic, normocephalic - Eye Eye exam: Present: PERRL, conjuntiva pink, sclera anicteric Pupils: Present: PERRL - Neck Neck exam general surgery: Present: supple, trachea midline. Absent: lymphadenopathy - Respiratory Respiratory exam: Present: CTAB. Absent: accessory muscle use, rales, respiratory distress, rhonchi, wheezes - Cardiovascular Cardiovascular exam: Present: RRR, +S1, +S2. Absent: diastolic murmur, gallop, rubs, systolic murmur - GI/Abdominal GI/Abdominal exam: Present: normal bowel sounds, soft, no peritoneal signs. Absent: distended, tenderness - Extremities Exam Extremities exam: Present: warm, radial pulses palpable and symetrical. Absent : calf tenderness, cyanotic, pedal edema - Neurological Exam Neurological exam: Present: alert, CN II-XII intact, oriented X3, no focal deficits, strengths equal and symetr throughout. Absent: pronater drift, facial droop, speech deficit - Skin Skin exam: Present: dry, intact, pallor, warm Internal Medicine: Result - Labs CBC & Chem 7: 07/03/16 12:16 07/03/16 12:16 Labs: Short CBC 07/03/16 Range/Units 12:16 WBC 5.5 (4.3-11.1) K/mcL Hgb 12.9 D (11.5-15.4) g/dL Hct 39.4 (35.3-44.9) % Plt Count 826 H (140-400) K/mcL Neutrophils # 1.7 (1.6-8.9) K/mcL BMP 07/03/16 12:16 Sodium 136 Potassium 4.5 Chloride 107 Carbon Dioxide 17 L BUN 28 H Creatinine 1.83 H Glucose 99 Calcium 8.9 Liver Function 07/03/16 Range/Units 12:16 Total Bilirubin 0.8 D (0.2-1.2) mg/dL AST 13 (5-34) Units/L ALT 12 (0-55) Units/L Alkaline Phosphatase 106 (38-126) Units/L Albumin 2.5 L (3.5-5.0) g/dL - ABG Interpretation ABG results: PT/INR, D-dimer PT 14.1 Seconds (9.4-12.1) H 07/03/16 12:16 - Impressions Impressions Bone Marrow Biopsy w/ CT 07/03/16 00:00 IMPRESSION: Successful CT guided bone marrow aspiration and core biopsy of the iliac bone. D/ / Kang Julian MD / Kang Julian MD Interpreting Provider: Kang Julian MD Retroperitoneum Ultrasound 07/03/16 09:00 IMPRESSION: 1. No hydronephrosis. 2. Severe right renal atrophy. Increased cortical echogenicity of both kidneys is compatible with chronic medical renal disease. D/ / Kashif Garcia MD / Kashif Garcia MD Interpreting Provider: Kashif Garcia MD Consult Discharge Plan - Plan Referrals: Varun Howard DO [Primary Care Provider] - 07/07/16 10:00 am
[2016-07-03 15:32] VITALS: BP 166/84
--- NOTE | 2016-07-03 17:26 | Discharge Summary ---
Date of Encounter: 07/03/16 Time of Encounter: 12:30 (and 1630) - Discharge Diagnosis (1) Anemia Priority: Secondary Status: Chronic Comments: She was transfused with 3 units of packed red blood cells and remained hemodynamically stable. Hemoglobin 6.8 up to 12.9. Oncology/hematology were on board during this admission and she had a bone marrow biopsy prior to discharge. Follow-up closely outpatient with primary care provider, oncology, and nephrology. 07/02/16 Acute on chronic. It appears as if her hemoglobin was stable from 2013 until October 2015 between 9 and 10 and from that point, has trended down similar to her renal functioning. Hemoglobin currently 6.8, she is symptomatic, we will transfuse 3 units of packed red blood cells. We will also initiate anemia workup. Thrombocytosis also noted. Patient was on methotrexate for her RA until April of this year. Hematology/oncology now on board. Plan is for a bone marrow biopsy tomorrow. Qualifiers: Anemia type: unspecified type Qualified Code(s): D64.9 - Anemia, unspecified (2) Acute renal failure Priority: Primary Status: Acute Comments: Unclear causation. Patient had normal renal functioning in October 2015 and she has rapidly progressed into renal failure currently stage IV. She has not seen a laundry aid according to her chart, nephrology on board. Dr. Torres brought on board. Diabetes relatively well controlled with an A1c of 6.5% on . Retroperitoneal ultrasound revealing severe right renal atrophy with increased cortical echogenicity bilaterally. Follow-up outpatient with nephrology. ITS Impressions Retroperitoneum Ultrasound 07/03/16 09:00 IMPRESSION: 1. No hydronephrosis. 2. Severe right renal atrophy. Increased cortical echogenicity of both kidneys is compatible with chronic medical renal disease. D/ / Kashif Garcia MD / Kashif Garcia MD Interpreting Provider: Kashif Garcia MD (3) Thrombocytosis Priority: Primary Status: Acute Comments: New, stable and continued to improve daily while admitted. Followup outpatient with hematology/oncology. Bone marrow biopsy today. Inflammatory markers elevated as well suggestive of possible reactive etiology secondary to her RA. (4) Type 2 diabetes mellitus Priority: Secondary Status: Chronic Comments: Relatively well controlled with an A1c of 6.5% on 05/08/16. followup outpatient. 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 According to her chart, she was switched away from methotrexate due to concerns over her ability to take her doses once per week. Qualifiers: Rheumatoid arthritis location: multiple sites Rheumatoid factor presence: unspecified presence Qualified Code(s): M06.9 - Rheumatoid arthritis, unspecified (6) Mouth sore Priority: Primary Status: Acute Comments: Seen by her primary care provider and diagnosed with a cheek abscess and started on amoxicillin-continued (7) Malnourished Priority: Primary Status: Acute Comments: Emaciated. Her weights when she saw her primary care provider and her student life dean in April were 120 pounds, she is currently 113. Unclear whether or not she was actually weighed at these appointments. She currently has an aide twice a week but declined any and all other services. She ate well while admitted- followup outpatient. (8) Hypertension Priority: Primary Status: Acute Comments: She does not appear to have a history of hypertension. She is not on any antihypertensive medications at home. Amlodipine initiated per nephrology- daily BP checks at home and followup outpatient. - Discharge Medications Prescriptions: HYDROcodone/Acet 5/325 mg [[place] 5-325 mg] 1 tab PO Q6HR PRN #10 tablet PRN Reason: Pain Ondansetron ODT [Zofran ODT] 4 mg SL Q6HR PRN #12 tab.rapdis PRN Reason: Nausea And Vomiting Amlodipine [Norvasc] 5 mg PO BID #60 tablet Home Medications: Amoxicillin [Amoxil] 500 mg PO BID 07/01/16 [History] Cholecalciferol (D-3) [Vitamin D] 5,000 unit PO DAILY 07/01/16 [History] Dicyclomine [Bentyl] 10 mg PO QID 07/01/16 [History] Escitalopram [Lexapro] 10 mg PO DAILY 07/01/16 [History] Insulin LISPRO [Humalog Kwikpen U-100] 25 unit SQ BID 07/01/16 [History] Sulfasalazine [Azulfidine] 500 mg PO BID 07/01/16 [History] Amlodipine [Norvasc] 5 mg PO BID #60 tablet 07/03/16 [Rx] HYDROcodone/Acet 5/325 mg [[place] 5-325 mg] 1 tab PO Q6HR PRN #10 tablet [Rx] Ondansetron ODT [Zofran ODT] 4 mg SL Q6HR PRN #12 tab.rapdis 07/03/16 [Rx] Allergies/Adverse Reactions: Allergies Cefaclor [From Ceclor] Adverse Reaction (Verified 10/07/15 12:51) See Comments Procedures/tests Complete & Pending: Procedures Performed prior 72 hours Category Date Time Status CT guided biopsy [CT] Routine Cat Scan 07/03/[address] biopsy bone marrow [CT] Routine Exams 07/03/16 Completed Date of admission: 07/02/16 18:38 Primary care physician: Varun Howard DO Consults: 07/02/16 18:55 Consult to Interventional Radiology [CONS] Routine Consulting Provider: Radiology Interventional Cols Reason for Consult: new onset thrombocytosis, normocytic anemia. Needs bone marrow bx to rule out concomitant primary hematological process. IR not here on weekends ; will call in the am. NPO at midnight. Call Completed: No 07/03/16 11:26 Consult to Occupational Therapy [CONS] Routine Comment: Evaluate, develop and implement POC Consult to Physical Therapy [CONS] Routine Comment: Evaluate, develop and implement POC 07/03/16 14:29 Consult to Nutrition [CONS] Routine Comment: Consulting Provider: NUTRITION Reason for Dietary Consult: Supplemental Nutrition Discharging clinician: Elisabet Izquierdo Anticipated date of discharge: 07/03/16 (followup closely outpatient with Onc and Nephro) - Patient Status Disposition: Home Health Service Condition: Fair Functional capacity at discharge: independent ambulation Overall status at discharge: patient is progressing back to baseline - Discharge Instructions Follow Up With: Varun Howard DO [Primary Care Provider] - 07/07/16 10:00 am Oncology [facility] [Provider Group] [facility] [Provider Group] Additional Instructions: Follow-up with primary care provider as scheduled, follow up with oncology within 1-2 weeks. Follow up with nephrology within 2-3 weeks. - Diet and Activity Activity: increase activity as tolerated Diet: diabetic diet Hospital course: Ms. Biggs is a 76 year old female with past medical history of diabetes, and rheumatoid arthritis. Patient was sent to the emergency department from her primary care provider chief complaint of low blood counts. Patient is a poor historian and most of the history was obtained from chart review. Patient was on methotrexate therapy up until April of this year per Dr. Conde and this was stopped due to concerns of her remembering to take the medication once a week and she was switched to sulfasalazine therapy. In review of her chart, it appears as if her hemoglobin was stable from 2013 until October 2015 and was typically between 9 and 10 and from that point it has trended down as has her renal functioning. Hemoglobin at time of presentation was 6.8 and the patient was lightheaded, dizzy. She was admitted to the hospitalist service for further evaluation and management. She was transfused with 3 units of packed red blood cells and remained hemodynamically stable. Hematology/oncology report on board during this admission and patient had a bone marrow biopsy prior to discharge. She was also seen by nephrology Dr. Torres for her new onset of renal failure. She had a retroperitoneal ultrasound revealed severe right renal atrophy with increased cortical echogenicity bilaterally. She was also noted to be hypertensive without any antihypertensive medications at home and she was started on amlodipine 5 mg twice a day. Regarding her thrombocytosis, inflammatory markers were also elevated suggesting possible reactive etiology secondary to her RA. Patient was evaluated by occupational and physical therapy who recommended ECF placement. The patient refused. Patient currently has a nurse at her home 2 days a week and patient refused any new services. She was alert and oriented 3 throughout this admission. The risks versus benefits of choosing not to do inpatient and choosing to decline therapy at home were discussed but the patient still declined additional services. Ideally, wanted to keep the patient another night in the hospital to further control her blood pressure however she refused stating she needed to go home. She was discharged home in stable condition with close outpatient follow- up with her primary care provider, oncologist, and nephrology highly recommended. ITS Impressions Bone Marrow Biopsy w/ CT 07/03/16 00:00 IMPRESSION: Successful CT guided bone marrow aspiration and core biopsy of the iliac bone. D/ / Kang Julian MD / Kang Julian MD Interpreting Provider: Kang Julian MD Retroperitoneum Ultrasound 07/03/16 09:00 IMPRESSION: 1. No hydronephrosis. 2. Severe right renal atrophy. Increased cortical echogenicity of both kidneys is compatible with chronic medical renal disease. D/ / Kashif Garcia MD / Kashif Garcia MD Interpreting Provider: Kashif Garcia MD - Time Spent with Patient Total time spent providing and/or coordinating discharge services: - Constitutional Vitals: Temp Pulse Resp BP Pulse Ox 97.6 F 70 16 166/84 95 07/03/16 15:30 07/03/16 16:03 07/03/16 16:03 07/03/16 16:03 07/03/16 16:03 General appearance: Present: cachectic, cooperative, A&O X 3, pleasant, no acute distress, answers questions appropriately - Head Head exam: Present: atraumatic, normocephalic - Eye Eye exam: Present: PERRL, conjuntiva pink, sclera anicteric Pupils: Present: PERRL - Neck Neck exam general surgery: Present: supple, trachea midline. Absent: lymphadenopathy - Respiratory Respiratory exam: Present: CTAB. Absent: accessory muscle use, rales, respiratory distress, rhonchi, wheezes - Cardiovascular Cardiovascular exam: Present: RRR, +S1, +S2. Absent: diastolic murmur, gallop, rubs, systolic murmur - GI/Abdominal GI/Abdominal exam: Present: normal bowel sounds, soft, no peritoneal signs. Absent: distended, tenderness - Extremities Exam Extremities exam: Present: warm, radial pulses palpable and symetrical. Absent : calf tenderness, cyanotic, pedal edema - Neurological Exam Neurological exam: Present: alert, CN II-XII intact, oriented X3, no focal deficits, strengths equal and symetr throughout. Absent: pronater drift, facial droop, speech deficit - Skin Skin exam: Present: dry, intact, pallor, warm - Other Additional findings: deformities 2/2 RA to bilateral hands
--- NOTE | 2016-07-03 17:56 | Physician Discharge Referral ---
Home Health/Hosp Referral Info Transfer to: Home Health Attending Provider: Aysha Izqueirdo CNP Provider in Charge Post Discharge: PCP - Diagnosis (1) Anemia Priority: Primary Status: Chronic (2) Acute renal failure Priority: Primary Status: Acute (3) Thrombocytosis Priority: Primary Status: Acute (4) Type 2 diabetes mellitus Priority: Secondary Status: Chronic (5) Rheumatoid arthritis Priority: Secondary Status: Chronic (6) Mouth sore Priority: Primary Status: Acute (7) Malnourished Priority: Primary Status: Acute (8) Hypertension Priority: Primary Status: Acute - Respiratory Orders Smoking Cessation: Smoking cessation has been advised. For more information, call the [place] Tobacco Quit Line at 5-450-FDCO-NOW. - Diet/Nutrition Diet/Nutrition Orders: No Concentrated Sweets - Activity Activity Orders: Ambulate, Walker - Services Needed Following services are medically necessary services: Nursing (refuses any additional services) - Transfer Medications Prescriptions: HYDROcodone/Acet 5/325 mg [[place] 5-325 mg] 1 tab PO Q6HR PRN #10 tablet PRN Reason: Pain Ondansetron ODT [Zofran ODT] 4 mg SL Q6HR PRN #12 tab.rapdis PRN Reason: Nausea And Vomiting Amlodipine [Norvasc] 5 mg PO BID #60 tablet Home Medications: Amoxicillin [Amoxil] 500 mg PO BID 07/01/16 [History] Cholecalciferol (D-3) [Vitamin D] 5,000 unit PO DAILY 07/01/16 [History] Dicyclomine [Bentyl] 10 mg PO QID 07/01/16 [History] Escitalopram [Lexapro] 10 mg PO DAILY 07/01/16 [History] Insulin LISPRO [Humalog Kwikpen U-100] 25 unit SQ BID 07/01/16 [History] Sulfasalazine [Azulfidine] 500 mg PO BID 07/01/16 [History] Amlodipine [Norvasc] 5 mg PO BID #60 tablet 07/03/16 [Rx] HYDROcodone/Acet 5/325 mg [[place] 5-325 mg] 1 tab PO Q6HR PRN #10 tablet [Rx] Ondansetron ODT [Zofran ODT] 4 mg SL Q6HR PRN #12 tab.rapdis 07/03/16 [Rx] Allergies/Adverse Reactions: Allergies Cefaclor [From Ceclor] Adverse Reaction (Verified 10/07/15 12:51) See Comments Certification: Further, I certify that my clinical findings support that this patient is homebound (i.e. absences from home require considerable and taxing effort and are for medical reasons or christianity services or infrequently or short duration when for other reasons) because: Homebound Reason: Patient requires assistance of a person or device to safely leave home, Leaving home requires considerable and taxing effort due to condition Attestation: My signature below is to certify that this patient is under my care and that I, or nurse practitioner, or a physician's public aid eligibility assistant working with me, has a face-to -face encounter with this patient.
[2016-07-05 15:41] LABS: Alpha 2 Globulin (PEP) 1.14 g/dL (0.48-1.05); Beta Globulin (PEP) 0.98 g/dL (0.48-1.10)
[2016-07-06 11:27] LABS: IFE Reflexed NOT DONE
[2016-07-10 11:25] LABS: JAK2 (V617F) Mutation by PCR NOT DETECTED
[2016-07-10 13:21] LABS: BCR-ABL1 Specimen Source NOT SPECIFIED
== END 2016-07-03 19:01 | disposition home health service (06) | DRG 815 ==
LOC: 3BNU 10:50 → EMEROO 10:50 → 3BNU 15:47
PROVIDERS: ADMIT Nurse Practitioner Family; ATTEND Nurse Practitioner Family

== ENCOUNTER 2018-03-05 16:03 | Inpatient (IN) ==
--- NOTE | 2018-03-05 16:25 | Emergency Department Note ---
Disposition Clinical Impression: Urinary tract infection Qualifiers: Urinary tract infection type: acute cystitis Hematuria presence: without hematuria Qualified Code(s): N30.00 - Acute cystitis without hematuria Disposition: Admitted As Inpatient Condition: Good Time of Disposition: 17:31 General Adult HPI - General Chief complaint: ED Urogenital-Female Stated complaint: Sent by Dr Callaway For IV AntiBiotics Time Seen by Provider: 03/05/18 16:08 Source: patient, family Mode of arrival: ambulatory Limitations: no limitations Nursing Notes Reviewed: Yes Vital Signs Reviewed: Yes - History of Present Illness HPI Narrative: 77 yo female with PMHx of rheumatoid arthritis and DM presents from home in need of IV antibiotics. Dr. Callaway called the patient earlier today when her urine cultures grew e. faecalis with resistance to oral antibiotics. She has been having burning with urination and urinary frequency for the past few days, and has had consistently low blood sugars requiring a reduction in insulin. She denies other symptoms at this time including headache, chest pain, SOB, abdominal pain, N/V/D/C, dizziness and confusion. Pain Scale: 3 - Related Data Home Medications Medication Instructions Recorded Confirmed Amoxicillin [Amoxil] 500 mg PO BID 07/01/16 07/01/16 Cholecalciferol (D-3) [Vitamin D] 5,000 unit PO DAILY 07/01/16 07/01/16 Dicyclomine [Bentyl] 10 mg PO QID 07/01/16 07/01/16 Escitalopram [Lexapro] 10 mg PO DAILY 07/01/16 07/01/16 Insulin LISPRO [Humalog Kwikpen 25 unit SQ BID 07/01/16 12/13/17 U-100] Sulfasalazine [Azulfidine] 500 mg PO BID 07/01/16 07/01/16 Previous Rx's Medication Instructions Recorded HYDROcodone/Acet 5/325 mg [[place] 1 tab PO Q6HR PRN #10 tablet 07/03/16 5-325 mg] Ondansetron ODT [Zofran ODT] 4 mg SL Q6HR PRN #12 tab.rapdis 07/03/16 amLODIPine [Norvasc] 5 mg PO BID #60 tablet 07/03/16 Allergies Allergy/AdvReac Type Severity Reaction Status Date / Time Cefaclor [From Ceclor] AdvReac See Verified 10/07/15 12:51 Comments All systems ED: reviewed and negative except as stated. Review of Systems: As Per HPI Constitutional: Denies: fever, chills, weakness Eyes: Reports: eye discharge (left eye). Denies: eye pain Cardiovascular: Denies: chest pain, palpitations, dyspnea on exertion, edema, syncope Respiratory: Denies: cough, dyspnea, wheezes Gastrointestinal: Denies: abdominal pain, nausea, vomiting, diarrhea, constipation Genitourinary: Reports: urgency, dysuria, frequency. Denies: hematuria, discharge Musculoskeletal: Denies: back pain, neck pain Integumentary: Denies: rash Neurological: Denies: headache, weakness, numbness Psychiatric: Denies: anxiety Endocrine: Denies: fatigue Hematological/Lymphatic: Denies: easy bleeding Past Medical History - Past Medical History Medical history: Reports: arthritis, diabetes Surgical history: Reports: hip replacement, other Psychiatric history: Reports: no psych history - Social History Smoking Status: Never smoker Smokeless Tobacco Status: No Alcohol use: Reports: none Drug use: Reports: none Physical Exam - General Limitations: no limitations General appearance: alert, in no apparent distress - Head Head exam: atraumatic, normocephalic - Eye Eye exam: Present: PERRL (right eye), EOMI (right eye), other (false left eye with yellowish-white discharge) - ENT ENT exam: normal exam, mucous membranes moist - Neck Neck exam: Present: normal inspection. Absent: tenderness, lymphadenopathy - Chest Chest inspection: Present: normal inspection - Respiratory Respiratory exam: Present: normal lung sounds bilaterally - Cardiovascular Cardiovascular exam: Present: regular rate, normal rhythm, systolic murmur (grade 2 regurg) - Abdominal Exam Abdominal exam: Present: soft, Non-Tender. Absent: distention, guarding, rebound Abdominal tenderness: Absent: suprapubic - Extremities Exam Extremities exam: Present: normal inspection. Absent: tenderness, pedal edema, joint swelling, calf tenderness - Back Exam Back exam: Present: normal inspection. Absent: CVA tenderness (R), CVA tenderness (L) - Neurological Exam Neurological exam: Present: alert, oriented X3 - Psychiatric Psychiatric exam: Present: normal affect, normal mood - Skin Skin exam: Present: warm, dry, intact Course Vital Signs Temperature 98.2 F 03/05/18 16:05 Pulse Rate 87 03/05/18 16:05 Respiratory Rate 15 03/05/18 16:05 Blood Pressure 158/87 03/05/18 16:05 O2 Sat by Pulse Oximetry 100 03/05/18 16:05 Temperature 98.2 F 03/05/18 16:20 Pulse Rate 91 03/05/18 17:56 Respiratory Rate 17 03/05/18 17:56 Blood Pressure 190/84 03/05/18 17:56 O2 Sat by Pulse Oximetry 100 03/05/18 17:56 Oxygen Delivery Oxygen Delivery Room Air Medical Decision Making - MDM Narrative Medical decision making narrative: Pts microbiology reviewed. Will check CBC, BMP, lactic and draw blood cultures before beginning IV abx. Once lab work is back, will page hospitalist for admission. 1645 - Pt had an episode of bradycardia on the monitor, an EKG was ordered and done while the monitor read 33 bpm - the EKG showed sinus rhythm with a HR in the 80s. Pt asx at the time and not complaining of any chest pain or SOB. 1730 - Lab work is unremarkable aside from blood glucose of 322. Will start Unasyn in ED and admit to Hospitalist. Dr. Jeffery has accepted the patient. - Medical Records Medical records reviewed: Yes I reviewed the patient's medical records. - Lab Data Lab results reviewed: Yes I reviewed the patient's lab results. Result diagrams: 03/05/18 16:09 03/05/18 16:09 Lab Results 03/05/18 03/05/18 03/05/18 Range/Units 16:09 16:09 16:31 WBC 6.6 (4.3-11.1) K/mcL RBC 3.30 L (3.82-4.97) M/mcL Hgb 10.1 L (11.5-15.4) g/dL Hct 31.6 L (35.3-44.9) % MCV 95.8 (83.0-100.0) fL MCH 30.6 (28.0-33.3) pg MCHC 32.0 (31.6-35.5) g/dL RDW 13.7 (11.5-14.5) % Plt Count 262 (140-400) K/mcL MPV 9.7 (9.4-12.4) fL Immature Gran % 0.3 (0-4) % Seg Neutrophils % 60.8 % Lymphocytes % 30.4 % Monocytes % 6.8 % Eosinophils % 0.9 % Basophils % 0.8 % Neutrophils # 4.0 (1.6-8.9) K/mcL Lymphocytes # 2.0 (0.6-4.6) K/mcL Monocytes # 0.5 (0.0-1.3) K/mcL Eosinophils # 0.1 (0.0-0.6) K/mcL Basophils # 0.1 (0.0-0.2) K/mcL Sodium 132 L (136-145) mEq/L Potassium 4.6 (3.5-5.1) mEq/L Chloride 106 (98-107) mEq/L Carbon Dioxide 18 L (23-29) mEq/L BUN 28 H (8-23) mg/dL Creatinine 1.18 (0.60-1.20) mg/dL Est GFR ( Amer) 54 L (> 60) Est GFR (Non-Af Amer) 45 L (> 60) BUN/Creatinine Ratio 24 (6-26) Glucose 322 H (70-105) mg/dL Calculated Osmolality 292 (280-300) Lactic Acid 2.0 (0.5-2.2) mmol/L Calcium 9.1 (8.6-10.3) mg/dL - EKG Data EKG #1 EKG attestation: Yes I reviewed and interpreted this EKG. EKG results narrative: EKG done at 1647 on 03/05/2018 HR 89 bpm, NE interval 212, QRS duration 85, QT 330, QTc 402. Sinus rhythm with first degree heart block. No signs of ST segment elevations or depressions. No other signs of acute ischemia or arrhythmias.
[2018-03-05 16:43] LABS: Basophils # 0.1 K/mcL (0.0-0.2); Basophils % 0.8 %; Eosinophils # 0.1 K/mcL (0.0-0.6); Eosinophils % 0.9 %; Hematocrit 31.6 % (35.3-44.9); Hemoglobin 10.1 g/dL (11.5-15.4); Immature Granulocytes % 0.3 % (0-4); Lymphocytes % 30.4 %; Mean Corpuscular Hemoglobin 30.6 pg (28.0-33.3); Mean Corpuscular Volume 95.8 fL (83.0-100.0); Mean Platelet Volume 9.7 fL (9.4-12.4); Monocytes # 0.5 K/mcL (0.0-1.3); Monocytes % 6.8 %; Platelet Count 262 K/mcL (140-400); Red Cell Distribution Width 13.7 % (11.5-14.5); Segmented Neutrophils % 60.8 %
--- NOTE | 2018-03-05 16:58 | Emergency Department Note ---
Disposition Clinical Impression: Urinary tract infection Qualifiers: Urinary tract infection type: site unspecified Hematuria presence: without hematuria Qualified Code(s): N39.0 - Urinary tract infection, site not specified Disposition: Admitted As Inpatient Forms: ED Satisfaction Letter General Adult HPI - General Chief complaint: ED Urogenital-Female Stated complaint: Sent by Dr Callaway For IV AntiBiotics Time Seen by Provider: 03/05/18 16:08 Source: patient, family Mode of arrival: ambulatory Limitations: no limitations - History of Present Illness Pain Scale: 3 - Related Data Home Medications Medication Instructions Recorded Confirmed Amoxicillin [Amoxil] 500 mg PO BID 07/01/16 07/01/16 Cholecalciferol (D-3) [Vitamin D] 5,000 unit PO DAILY 07/01/16 07/01/16 Dicyclomine [Bentyl] 10 mg PO QID 07/01/16 07/01/16 Escitalopram [Lexapro] 10 mg PO DAILY 07/01/16 07/01/16 Insulin LISPRO [Humalog Kwikpen 25 unit SQ BID 07/01/16 12/13/17 U-100] Sulfasalazine [Azulfidine] 500 mg PO BID 07/01/16 07/01/16 Previous Rx's Medication Instructions Recorded HYDROcodone/Acet 5/325 mg [[place] 1 tab PO Q6HR PRN #10 tablet 07/03/16 5-325 mg] Ondansetron ODT [Zofran ODT] 4 mg SL Q6HR PRN #12 tab.rapdis 07/03/16 amLODIPine [Norvasc] 5 mg PO BID #60 tablet 07/03/16 Allergies Allergy/AdvReac Type Severity Reaction Status Date / Time Cefaclor [From Ceclor] AdvReac See Verified 10/07/15 12:51 Comments Constitutional: Denies: fever, chills, weakness Eyes: Reports: eye discharge (left eye). Denies: eye pain Cardiovascular: Denies: chest pain, palpitations, dyspnea on exertion, edema, syncope Respiratory: Denies: cough, dyspnea, wheezes Gastrointestinal: Denies: abdominal pain, nausea, vomiting, diarrhea, constipation Genitourinary: Reports: urgency, dysuria, frequency. Denies: hematuria, discha rge Musculoskeletal: Denies: back pain, neck pain Integumentary: Denies: rash Neurological: Denies: headache, weakness, numbness Psychiatric: Denies: anxiety Endocrine: Denies: fatigue Hematological/Lymphatic: Denies: easy bleeding Past Medical History - Past Medical History Medical history: Reports: arthritis, diabetes Surgical history: Reports: hip replacement, other Psychiatric history: Reports: no psych history - Social History Smoking Status: Never smoker Smokeless Tobacco Status: No Alcohol use: Reports: none Drug use: Reports: none Physical Exam - General Limitations: no limitations General appearance: alert, in no apparent distress Course Vital Signs Temperature 98.2 F 03/05/18 16:05 Pulse Rate 87 03/05/18 16:05 Respiratory Rate 15 03/05/18 16:05 Blood Pressure 158/87 03/05/18 16:05 O2 Sat by Pulse Oximetry 100 03/05/18 16:05 Temperature 98.2 F 03/05/18 16:20 Pulse Rate 87 03/05/18 16:20 Respiratory Rate 15 03/05/18 16:20 Blood Pressure 158/87 03/05/18 16:20 O2 Sat by Pulse Oximetry 100 03/05/18 16:20 Oxygen Delivery Oxygen Delivery Room Air Medical Decision Making - Lab Data Result diagrams: 03/05/18 16:09 Lab Results 03/05/18 03/05/18 Range/Units 16:09 16:31 WBC 6.6 (4.3-11.1) K/mcL RBC 3.30 L (3.82-4.97) M/mcL Hgb 10.1 L (11.5-15.4) g/dL Hct 31.6 L (35.3-44.9) % MCV 95.8 (83.0-100.0) fL MCH 30.6 (28.0-33.3) pg MCHC 32.0 (31.6-35.5) g/dL RDW 13.7 (11.5-14.5) % Plt Count 262 (140-400) K/mcL MPV 9.7 (9.4-12.4) fL Immature Gran % 0.3 (0-4) % Seg Neutrophils % 60.8 % Lymphocytes % 30.4 % Monocytes % 6.8 % Eosinophils % 0.9 % Basophils % 0.8 % Neutrophils # 4.0 (1.6-8.9) K/mcL Lymphocytes # 2.0 (0.6-4.6) K/mcL Monocytes # 0.5 (0.0-1.3) K/mcL Eosinophils # 0.1 (0.0-0.6) K/mcL Basophils # 0.1 (0.0-0.2) K/mcL Lactic Acid 2.0 (0.5-2.2) mmol/L Attestation Statement - Attestation Attestation: I examined this patient and my medical decision-making was reviewed with the Resident Physician. I agree with the documented findings, disposition and treatment plan as described except to the extent set forth below. 77 year old judi presnts to the ED from her PCP office for UTI that is only sensitive to IV ABX. Patint otherwise appaers moderately dehydrated and we will start IV ABX and IVF and then baseline labs with admission to medicine
[2018-03-05 17:04] LABS: Calcium 9.1 mg/dL (8.6-10.3); Potassium 4.6 mEq/L (3.5-5.1)
[2018-03-05] MEDS: Ampicillin/Sulbactam 3,000 MG in 0.9 % Sodium Chloride Mini Bag 100 ML IVPB SCH (17:55)
[2018-03-05] MEDS ORDERED: Acetaminophen 325 MG TABLET PO PRN (20:47)
[2018-03-05] MEDS ORDERED: Naloxone 0.4 MG/ML INJ IVP PRN (20:47)
[2018-03-05] MEDS ORDERED: Ondansetron 4 MG/2 ML VIAL IVP PRN (20:47)
[2018-03-05] MEDS ORDERED: *HR* Dextrose 50 % in Water (Syg) 50 ML SYRINGE IVP PRN (20:53)
[2018-03-05] MEDS ORDERED: D5% in Water 1,000 ML IVC PRN (20:53)
[2018-03-05] MEDS ORDERED: Dextrose Gel 15 GM/37.5 ML TUBE PO PRN ×2 (20:53)
[2018-03-05] MEDS ORDERED: *HR* HYDROcodone/Acet 5/325 mg TABLET PO PRN (20:54)
--- NOTE | 2018-03-05 20:55 | Internal Med History&Physical ---
Date of Encounter: 03/05/18 Time of Encounter: 20:55 Internal Medicine - H&P: HPI Admitted From: Home Plans for Post Hospital Care: Home History of present illness: Ms. Biggs is a 77 year old female with past medical history of DM-II, anemia, HTN, severe RA who presents with dysuria. Pt states she developed dysuria approx 10 days ago. SHe mentioned it to her [facility] nurse who obatined a urine sample from her. Pt states she was diagnosed with UTI and prescribed PO antibiotic but dysuria did not improve of subside. States she was informed by her PCP that her UTI needs to be teat with antibiotic and hence why she [presented to the ED. Urine culture done 02/25/2018 grew Enterococcus faecalis which is sensitive to ampicillin, Daptomycin, Linezolid and Vancomycin. In ED Vitals stable BP 175/71, HR 114, RR 16, temp 98.0, sat 100% on room air. Hgb 10.1, hct 31.6 Sodium 132. BUN 28 and Cr 1.18. Pt wishes to be a FULL CODE. Past Med Surg Social Fam HX - Past Medical History Medical history: arthritis, diabetes Psychiatric history: no psych history - Past Surgical History Surgical History: hip replacement, other - Social History Smoking Status: Never smoker Smokeless Tobacco Status: No Alcohol use: none Drug use: none - Family History Mother Adopted: No Family Member Ethnicity: Non- Living Status: Hx Family Cardiac Disorders: Yes Hx Family Respiratory Disorders: Yes Hx Family Cancer: No Hx Family GI Disorders: No Hx Family Endocrine Disorder: No Hx Family Neuromuscular Disorders: No Hx Family Neurologic Disorders: No Hx Family HEENT Disorders: No Hx Family Autoimmune Disorders: No Father Adopted: No Family Member Ethnicity: Non- Living Status: Hx Family Cardiac Disorders: Yes Hx Family Respiratory Disorders: Yes Hx Family Cancer: No Hx Family GI Disorders: No Hx Family Endocrine Disorder: No Hx Family Neuromuscular Disorders: No Hx Family Neurologic Disorders: No Hx Family HEENT Disorders: No Hx Family Autoimmune Disorders: No Internal Medicine - H&P: Meds Amoxicillin [Amoxil] 500 mg PO BID 07/01/16 [History] Cholecalciferol (D-3) [Vitamin D] 5,000 unit PO DAILY 07/01/16 [History] Dicyclomine [Bentyl] 10 mg PO QID 07/01/16 [History] Escitalopram [Lexapro] 10 mg PO DAILY 07/01/16 [History] Insulin LISPRO [Humalog Kwikpen U-100] 25 unit SQ BID 07/01/16 [History] Sulfasalazine [Azulfidine] 500 mg PO BID 07/01/16 [History] HYDROcodone/Acet 5/325 mg [[place] 5-325 mg] 1 tab PO Q6HR PRN #10 tablet 07/03/16 [Rx] Ondansetron ODT [Zofran ODT] 4 mg SL Q6HR PRN #12 tab.rapdis 07/03/16 [Rx] amLODIPine [Norvasc] 5 mg PO BID #60 tablet 07/03/16 [Rx] Allergy/AdvReac Type Severity Reaction Status Date / Time Cefaclor [From Ceclor] AdvReac See Verified 10/07/15 12:51 Comments All Systems PM: A 10-system review of systems was performed and is negative for pertinent findings except as documented above in the HPI. - Constitutional Vitals: Temp Pulse Resp BP Pulse Ox 98.0 F 114 16 175/71 100 03/05/18 20:16 03/05/18 20:16 03/05/18 20:16 03/05/18 20:16 03/05/18 20:16 General appearance: Present: A&O X 3, no acute distress Exam: . - Head Head exam: Present: atraumatic, normocephalic - Eye Eye exam: Present: PERRL, conjuntiva pink, sclera anicteric Pupils: Present: PERRL Additional comments: Left eye distortion du to prior infection. Pt wears glasses - Neck Neck exam general surgery: Present: supple, trachea midline. Absent: lymphadenopathy - Respiratory Respiratory exam: Present: CTAB. Absent: accessory muscle use, rales, rhonchi, wheezes - Cardiovascular Cardiovascular exam: Present: RRR, +S1, +S2. Absent: diastolic murmur, gallop, rubs, systolic murmur - GI/Abdominal GI/Abdominal exam: Present: normal bowel sounds, soft, no peritoneal signs. Absent: distended, tenderness - Extremities Exam Extremities exam: Present: warm, radial pulses palpable and symmetrical. Absent: calf tenderness, cyanotic, pedal edema Additional comments: severe B/L UE and LE joint deformity due to RA - Neurological Exam Neurological exam: Present: CN II-XII intact, oriented X3, no focal deficits. Absent: pronater drift, facial droop, speech deficit - Skin Skin exam: Present: dry, intact Internal Med - H&P Results - Labs CBC & Chem 7: 03/05/18 16:09 03/05/18 16:09 Labs: Short CBC 03/05/18 Range/Units 16:09 WBC 6.6 (4.3-11.1) K/mcL Hgb 10.1 L (11.5-15.4) g/dL Hct 31.6 L (35.3-44.9) % Plt Count 262 (140-400) K/mcL Neutrophils # 4.0 (1.6-8.9) K/mcL BMP 03/05/18 16:09 Sodium 132 L Potassium 4.6 Chloride 106 Carbon Dioxide 18 L BUN 28 H Creatinine 1.18 Glucose 322 H Calcium 9.1 - Assessment and plan (1) Acute cystitis without hematuria Current Visit: Yes Status: Acute Assessment and plan: failed out pt treatment. UTI due to Enterococcus faecalis sensitive to vanc. Will order IV Vancomycin and ask pharmacy to dose. (2) Type 2 diabetes mellitus Current Visit: No Status: Chronic Assessment and plan: Will place on basal and SSI and monitor glucose. 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 Qualifiers: Rheumatoid arthritis location: multiple sites Rheumatoid factor presence: unspecified presence Qualified Code(s): M06.9 - Rheumatoid arthritis, unspecified (4) Hypertension Current Visit: No Status: Acute Assessment and plan: [facility] Qualifiers: Hypertension type: unspecified secondary hypertension Qualified Code(s): I15.9 - Secondary hypertension, unspecified; I15 - Secondary hypertension - Time Spent With Patient Total time spent is greater than 50% in coordination of care (as documented) at patient's floor/unit and/or counseling patient: 25 - 35 minutes
[2018-03-05] MEDS ORDERED: Insulin DETEMIR 100 UNIT/ML X5UNITS SQ SCH (21:00)
[2018-03-06] MEDS: Ampicillin/Sulbactam 3,000 MG in 0.9 % Sodium Chloride Mini Bag 100 ML IVPB SCH ×4 (02:13→17:05)
[2018-03-06 05:35] LABS: Hematocrit 30.5 % (35.3-44.9); Hemoglobin 9.9 g/dL (11.5-15.4); Mean Corpuscular HGB Conc 32.5 g/dL (31.6-35.5); Mean Corpuscular Hemoglobin 30.7 pg (28.0-33.3); Mean Corpuscular Volume 94.7 fL (83.0-100.0); Mean Platelet Volume 9.7 fL (9.4-12.4); Platelet Count 279 K/mcL (140-400); Red Blood Count 3.22 M/mcL (3.82-4.97); Red Cell Distribution Width 13.5 % (11.5-14.5)
[2018-03-06 05:55] LABS: BUN/Creatinine Ratio 23 (6-26); Blood Urea Nitrogen 23 mg/dL (8-23); Calcium 9.1 mg/dL (8.6-10.3); Carbon Dioxide 19 mEq/L (23-29); Chloride 109 mEq/L (98-107); Glucose 146 mg/dL (70-105); Osmolality,Calculated 288 (280-300); Potassium 4.2 mEq/L (3.5-5.1); Sodium 136 mEq/L (136-145); eGFR For Non-African Americans 53 (> 60)
[2018-03-06] MEDS: Insulin LISPRO 300 UNITS/3 ML VIAL SQ SCH ×3 (07:36→17:07)
[2018-03-06] MEDS ORDERED: sulfaSALAzine 500 MG TABLET PO SCH (09:00)
[2018-03-06] MEDS ORDERED: amLODIPine 5 MG TABLET PO SCH (09:00)
[2018-03-06 11:06] VITALS: BP 145/74
--- NOTE | 2018-03-06 15:21 | Physician Discharge Referral ---
Home Health/Hosp Referral Info Transfer to: Home Health Provider in Charge Post Discharge: PCP - Diagnosis (1) Acute cystitis without hematuria Priority: Primary Status: Acute (2) Type 2 diabetes mellitus Priority: Secondary Status: Chronic (3) Rheumatoid arthritis Priority: Secondary Status: Chronic (4) Hypertension Priority: Secondary Status: Acute - Respiratory Orders Smoking Cessation: Smoking cessation has been advised. For more information, call the [place] Tobacco Quit Line at 3-523-EAUU-NOW. - Diet/Nutrition Diet/Nutrition Orders: No Concentrated Sweets - Services Needed Following services are medically necessary services: Home Health Aide, Physical Therapy, Occupational Therapy - Transfer Medications Prescriptions: Amoxicillin/Clavulanate [Augmentin] 500 mg PO BIDWM 10 Days #20 tablet Home Medications: Cholecalciferol (D-3) [Vitamin D] 5,000 unit PO DAILY 07/01/16 [History] Escitalopram [Lexapro] 10 mg PO DAILY 07/01/16 [History] Sulfasalazine [Azulfidine] 1,000 mg PO BID 07/01/16 [History] Amoxicillin/Clavulanate [Augmentin] 500 mg PO BIDWM 10 Days #20 tablet 03/06/18 [Rx] Ferrous Gluconate 324 mg PO DAILY 03/06/18 [History] Folic Acid 1 mg PO DAILY 03/06/18 [History] Insulin Glargine [Lantus] 75 unit SQ DAILY 03/06/18 [History] Allergies/Adverse Reactions: Allergy/AdvReac Type Severity Reaction Status Date / Time Cefaclor [From Ceclor] AdvReac See Verified 10/07/15 12:51 Comments Certification: Further, I certify that my clinical findings support that this patient is homebound (i.e. absences from home require considerable and taxing effort and are for medical reasons or sikh services or infrequently or short duration when for other reasons) because: Homebound Reason: Patient requires assistance of a person or device to safely leave home Attestation: My signature below is to certify that this patient is under my care and that I, or nurse practitioner, or a physician's child center assistant working with me, has a [id number] encounter with this patient.
--- NOTE | 2018-03-06 15:24 | Discharge Summary ---
- NOTES TO OUTPATIENT PROVIDER Notes to Outpatient Provider: PCP in 5 to 7 days Orders not resulted at time of discharge: Pending orders 03/05/18 16:31 Culture,Blood [] Stat Date of Encounter: 03/06/18 Time of Encounter: 15:21 - Discharge Diagnosis (1) Acute cystitis without hematuria Priority: Primary Status: Acute Assessment and Plan: failed out pt treatment. UTI due to Enterococcus faecalis sensitive to vanc. Ordered IV Vancomycin which was switched to Unasyn since pt above bacteria also sensitive to ampicillin. Bedside discussion with Dr. Morales who recommends Augmentin 500 mg BID for few days. (2) Type 2 diabetes mellitus Priority: Secondary Status: Chronic Assessment and Plan: Placed on basal and SSI and monitor glucose. May resume home regimen at discharge. Qualifiers: Diabetes mellitus halfway insulin use: with halfway use Diabetes mellitus complication status: with other specified complication Qualified Code(s): E11.69 - Type 2 diabetes mellitus with other specified complication; Z79.4 - [facility] (current) use of insulin (3) Rheumatoid arthritis Priority: Secondary Status: Chronic Assessment and Plan: Will give prn pain medication. ON Sulfasalazine Qualifiers: Rheumatoid arthritis location: multiple sites Rheumatoid factor presence: unspecified presence Qualified Code(s): M06.9 - Rheumatoid arthritis, unspecified (4) Hypertension Priority: Secondary Status: Acute Assessment and Plan: [facility] Qualifiers: Hypertension type: unspecified secondary hypertension Qualified Code(s): I15.9 - Secondary hypertension, unspecified; I15 - Secondary hypertension Hospital course: History of present illness: Dr. Fink Ms. Biggs is a 77 year old female with past medical history of DM-II, anemia, HTN, severe RA who presents with dysuria. Pt states she developed dysuria approx 10 days ago. SHe mentioned it to her [facility] nurse who obatined a urine sample from her. Pt states she was diagnosed with UTI and prescribed PO antibiotic but dysuria did not improve of subside. States she was informed by her PCP that her UTI needs to be teat with antibiotic and hence why she [presented to the ED. Urine culture done 02/25/2018 grew Enterococcus faecalis which is sensitive to ampicillin, Daptomycin, Linezolid and Vancomycin. In ED Vitals stable BP 175/71, HR 114, RR 16, temp 98.0, sat 100% on room air. Hgb 10.1, hct 31.6 Sodium 132. BUN 28 and Cr 1.18. Pt wishes to be a FULL CODE. Discharge discussed with: patient - Time Spent with Patient Total time spent providing and/or coordinating discharge services: Greater than 30 minutes - Discharge Medications Prescriptions: Amoxicillin/Clavulanate [Augmentin] 500 mg PO BIDWM 10 Days #20 tablet Home Medications: Cholecalciferol (D-3) [Vitamin D] 5,000 unit PO DAILY 07/01/16 [History] Escitalopram [Lexapro] 10 mg PO DAILY 07/01/16 [History] Sulfasalazine [Azulfidine] 1,000 mg PO BID 07/01/16 [History] Amoxicillin/Clavulanate [Augmentin] 500 mg PO BIDWM 10 Days #20 tablet 03/06/18 [Rx] Ferrous Gluconate 324 mg PO DAILY 03/06/18 [History] Folic Acid 1 mg PO DAILY 03/06/18 [History] Insulin Glargine [Lantus] 75 unit SQ DAILY 03/06/18 [History] Allergies/Adverse Reactions: Allergy/AdvReac Type Severity Reaction Status Date / Time Cefaclor [From Ceclor] AdvReac See Verified 10/07/15 12:51 Comments Date of admission: 03/05/18 20:47 Primary care physician: Varun Howard DO Discharging clinician: Dianne Fink Anticipated date of discharge: 03/06/18 - Constitutional Vitals: Temp Pulse Resp BP Pulse Ox 98.7 F 97 16 145/74 99 03/06/18 11:01 03/06/18 11:01 03/06/18 11:01 03/06/18 11:01 03/06/18 11:01 General appearance: Present: A&O X 3, no acute distress Exam: General appearance: Present: A&O X 3, no acute distress Exam: - Head Head exam: Present: atraumatic, normocephalic - Eye Eye exam: Present: PERRL, conjuntiva pink, sclera anicteric Pupils: Present: PERRL Additional comments: Left eye distortion due to prior infection. Pt wears glasses - Neck Neck exam general surgery: Present: supple, trachea midline. Absent: lymphadenopathy - Respiratory Respiratory exam: Present: CTAB. Absent: accessory muscle use, rales, rhonchi, wheezes - Cardiovascular Cardiovascular exam: Present: RRR, +S1, +S2. Absent: diastolic murmur, gallop, rubs, systolic murmur - GI/Abdominal GI/Abdominal exam: Present: normal bowel sounds, soft, no peritoneal signs. Absent: distended, tenderness - Extremities Exam Extremities exam: Present: warm, radial pulses palpable and symmetrical. Absent: calf tenderness, cyanotic, pedal edema Additional comments: severe B/L UE and LE joint deformity due to RA - Neurological Exam Neurological exam: Present: CN II-XII intact, oriented X3, no focal deficits. Absent: pronater drift, facial droop, speech deficit - Skin Skin exam: Present: dry, intact - Patient Status Disposition: Home Health Service Condition: Good Overall status at discharge: patient is back to baseline - Discharge Instructions Follow Up With: Varun Howard DO [Primary Care Provider] - (Appt WR) - Diet and Activity Activity: increase activity as tolerated Diet: diabetic diet
[2018-03-06] MEDS ORDERED: Aminoglycoside Consult 1 EACH MC ONE (18:46)
--- NOTE | 2018-03-07 07:29 | Electrocardiograph Report ---
[facility] Test Date: 2018-03-05 Pat Name: Sanam Biggs Department: [id number] Room: 3A25 Gender: F Direct Care Provider: : [id number] Requested By: Rachael Rene Order Number: [id number] Reading MD: Suraj Guevara Measurements Intervals [place] Rate: 89 P: 53 DE: 212 QRS: 23 QRSD: 85 T: 31 QT: 330 QTc: 402 Interpretive Statements Sinus rhythm Electronically Signed On 03-07-2018 7:27:27 EST by Suraj Guevara
== END 2018-03-06 18:47 | disposition home health service (06) | DRG 690 ==
LOC: 3BNU 16:03 → EMEROOARM 16:03 → 3BNU 20:01 → 3ANU 03-06 11:14
PROVIDERS: ADMIT Internal Medicine Cardiovascular Disease; ATTEND Internal Medicine Cardiovascular Disease